=== PATIENT | male | born 1960 | race Caucasian/White ===

== ENCOUNTER → 2018-01-10 09:43 | Outpatient (CLI) | payer OTHER, SELFPAY ==
[2018-01-10 12:14] LABS: Absolute Lymphocyte Count 2.12 X10^3/ul (0.83-4.51); Absolute Neutrophil Count 2.9 X10^3/uL (2.0-7.7); Basophil# 0.05 X10^3/uL; Basophil% 0.9 % (0-1); Eosinophil# 0.23 X10^3/uL; Hematocrit 42.4 % (40-54); Hemoglobin 14.1 g/dl (13.0-16.5); Lymphocyte # 2.12 X10^3/ul (4.0); Lymphocyte % 37.1 % (19-41); Mean Corp Hgb Conc 33.3 g/gl (32-36); Mean Corpuscular Hgb 32.8 pg (27.0-32.0); Mean Corpuscular Volume 98.6 fL (80-94); Mean Platelet Vol. 10.9 fl (6.2-12.0); Monocyte# 0.41 X10^3/uL; Monocyte% 7.2 % (0-10); Neutrophil # 2.91 X10^3/uL (2.7-7.7); Neutrophil % 50.8 % (47-70); Platelet Count 197 K/mm3 (150-450); RBC Distribution Width CV 13.1 % (11.6-14.6); RBC Distribution Width SD 46.8 fl (35.1-43.9); White Blood Count 5.7 K/mm3 (4.4-11.0)
[2018-01-10 12:24] LABS: POSITIVE COUNT NO; POSITIVE DIFFERENTIAL NO; POSITIVE MORPHOLOGY NO
[2018-01-10 12:43] LABS: Anion Gap 10 (5-15); BUN 19 mg/dL (7-18); BUN/Creat Ratio 15.2 RATIO (10-20); Chloride 104 mmol/L (98-107); Cholesterol 202 mg/dL (200); Creatinine, Serum 1.25 mg/dL (0.70-1.30); EST Glomerular Filtration Rate 63 mL/min (>60); Est Glom Filt Rate - Afr Amer 77 mL/min (>60); Ferritin 128 ng/mL (26-388); Glucose 85 mg/dL (74-106); High Density Lipoprotein 72 mg/dL; Potassium 4.1 mmol/L (3.5-5.1); Sodium Level 141 mmol/L (136-145); Triglycerides 57 mg/dL; Very Low Density Lipoprotein 11 mg/dL (5-40)
== END ==
PROVIDERS: Family Provider Family Medicine; PCP Family Medicine; Visit Provider Family Medicine
DX: I10 Essential (primary) hypertension (principal); Z13.220 Encounter for screening for lipoid disorders; D64.9 Anemia, unspecified
CPT/HCPCS: 36415; 80048; 80061; 82728; 85025

== ENCOUNTER → 2019-01-23 08:44 | Outpatient (CLI) | payer OTHER, SELFPAY ==
[2019-01-23 10:05] LABS: Absolute Lymphocyte Count 2.13 X10^3/uL (0.83-4.51); Absolute Neutrophil Count 2.8 X10^3/uL (2.0-7.7); Basophil# 0.08 X10^3/uL; Basophil% 1.4 % (0-1); Eosinophil# 0.28 X10^3/uL; Eosinophils% 4.9 % (0-5); Hematocrit 41.6 % (40-54); Hemoglobin 14.3 g/dL (13.0-16.5); Lymphocyte # 2.13 X10^3/ul (4.0); Lymphocyte % 37.3 % (19-41); Mean Corp Hgb Conc 34.4 g/dL (32-36); Mean Corpuscular Hgb 33.6 pg (27.0-32.0); Mean Corpuscular Volume 97.9 fL (80-94); Mean Platelet Vol. 10.7 fl (6.2-12.0); Monocyte# 0.45 X10^3/uL; Monocyte% 7.9 % (0-10); NRBC Flagged by Analyzer 0 % (0-5); Neutrophil # 2.76 X10^3/uL (2.7-7.7); Neutrophil % 48.3 % (47-70); Platelet Count 200 K/mm3 (150-450); RBC Distribution Width CV 12.3 % (11.6-14.6); RBC Distribution Width SD 44.6 fl (35.1-43.9); Red Blood Count 4.25 M/mm3 (4.6-6.2); White Blood Count 5.7 K/mm3 (4.4-11.0)
[2019-01-23 10:28] LABS: ALB/GLOB Ratio 1.1 RATIO (0.9-2.4); AST(SGOT) 16 U/L (15-37); Alanine Aminotransfer ALT/SGPT 26 U/L (16-61); Alkaline Phosphatase 85 U/L (45-117); Anion Gap 8 (5-15); BUN 12 mg/dL (7-18); BUN/Creat Ratio 10.1 RATIO (10-20); Chloride 105 mmol/L (98-107); Cholesterol 190 mg/dL (200); Creatinine, Serum 1.19 mg/dL (0.70-1.30); EST Glomerular Filtration Rate 67 mL/min (>60); Est Glom Filt Rate - Afr Amer 81 mL/min (>60); Globulin 3.5 g/dL (2.2-4.2); Glucose 79 mg/dL (74-106); High Density Lipoprotein 70 mg/dL; Potassium 4.1 mmol/L (3.5-5.1); Protein, Total 7.5 g/dL (6.4-8.2); Sodium Level 140 mmol/L (136-145); Triglycerides 68 mg/dL; Very Low Density Lipoprotein 14 mg/dL (5-40)
== END ==
PROVIDERS: Family Provider Family Medicine; PCP Family Medicine; Referring Provider Family Medicine; Visit Provider Family Medicine
DX: Z13.220 Encounter for screening for lipoid disorders (principal); I10 Essential (primary) hypertension
CPT/HCPCS: 36415; 80053; 80061; 85025

== ENCOUNTER → 2019-08-07 08:28 | Outpatient (CLI) | payer OTHER, SELFPAY ==
[2019-08-07 10:10] LABS: Anion Gap 2 (5-15); BUN 17 mg/dL (7-18); BUN/Creat Ratio 13.8 RATIO (10-20); Calcium,Total 9.1 mg/dL (8.5-10.1); Chloride 109 mmol/L (98-107); Creatinine, Serum 1.23 mg/dL (0.70-1.30); EST Glomerular Filtration Rate 64 mL/min (>60); Est Glom Filt Rate - Afr Amer 78 mL/min (>60); Glucose 85 mg/dL (74-106); PSA,Total - Annual Screen 0.97 ng/mL (0.00-4.00); Potassium 3.9 mmol/L (3.5-5.1); Sodium Level 140 mmol/L (136-145)
[2019-08-07 10:17] LABS: Microalbumin,Random Urine 8.6 mg/L (NO RANGE EST.); Microalbumin:Creatinine Ratio 3.5 mg/g CRE (<30 mg/g CRE)
== END ==
PROVIDERS: PCP Family Medicine; Referring Provider Family Medicine; Visit Provider Family Medicine
DX: Z00.00 Encounter for general adult medical examination without abnormal findings (principal); Z12.5 Encounter for screening for malignant neoplasm of prostate; I10 Essential (primary) hypertension
CPT/HCPCS: 36415; 80048; 82043; 82570; 84153; G0103

== ENCOUNTER → 2020-01-28 08:33 | Outpatient (CLI) | payer OTHER, SELFPAY ==
[2020-01-28 10:24] LABS: ALB/GLOB Ratio 1.2 RATIO (0.9-2.4); AST(SGOT) 21 U/L (15-37); Alanine Aminotransfer ALT/SGPT 27 U/L (16-61); Alkaline Phosphatase 85 U/L (45-117); Anion Gap 4 (5-15); BUN 15 mg/dL (7-18); BUN/Creat Ratio 12.4 RATIO (10-20); Chloride 105 mmol/L (98-107); Cholesterol 204 mg/dL (200); Creatinine, Serum 1.21 mg/dL (0.70-1.30); EST Glomerular Filtration Rate 65 mL/min (>60); Est Glom Filt Rate - Afr Amer 79 mL/min (>60); Globulin 3.4 g/dL (2.2-4.2); Glucose 87 mg/dL (74-106); High Density Lipoprotein 76 mg/dL; Magnesium 2.2 mg/dL (1.6-2.6); Potassium 4.1 mmol/L (3.5-5.1); Protein, Total 7.4 g/dL (6.4-8.2); Sodium Level 138 mmol/L (136-145); Thyroid Stim Hormone (TSH) 1.77 uIU/mL (0.358-3.74); Triglycerides 88 mg/dL; Very Low Density Lipoprotein 18 mg/dL (5-40)
== END ==
PROVIDERS: PCP Family Medicine; Referring Provider Family Medicine; Visit Provider Family Medicine
DX: I10 Essential (primary) hypertension (principal); G43.909 Migraine, unspecified, not intractable, without status migrainosus
CPT/HCPCS: 36415; 80053; 80061; 83735; 84443

== ENCOUNTER → 2021-01-28 08:24 | Outpatient (CLI) | payer OTHER, SELFPAY ==
[2021-01-28 10:37] LABS: ALB/GLOB Ratio 1.1 RATIO (0.9-2.4); AST(SGOT) 14 U/L (15-37); Alanine Aminotransfer ALT/SGPT 27 U/L (16-61); Albumin, Serum 3.7 g/dL (3.2-5.0); Alkaline Phosphatase 88 U/L (45-117); Anion Gap 6 (5-15); BUN 11 mg/dL (7-18); BUN/Creat Ratio 9.5 RATIO (10-20); Calcium,Total 8.5 mg/dL (8.5-10.1); Chloride 105 mmol/L (98-107); Cholesterol 199 mg/dL (200); Creatinine, Serum 1.16 mg/dL (0.70-1.30); EST Glomerular Filtration Rate 68 mL/min (>60); Est Glom Filt Rate - Afr Amer 83 mL/min (>60); Globulin 3.4 g/dL (2.2-4.2); Glucose 85 mg/dL (74-106); High Density Lipoprotein 76 mg/dL; Potassium 4.3 mmol/L (3.5-5.1); Protein, Total 7.1 g/dL (6.4-8.2); Sodium Level 140 mmol/L (136-145); Triglycerides 67 mg/dL; Very Low Density Lipoprotein 13 mg/dL (5-40)
[2021-01-28 10:51] LABS: Microalbumin,Random Urine 6.2 mg/L (NO RANGE EST.); Microalbumin:Creatinine Ratio 4.8 mg/g CRE (<30 mg/g CRE)
== END ==
PROVIDERS: PCP Family Medicine; Referring Provider Family Medicine; Visit Provider Family Medicine
DX: I10 Essential (primary) hypertension (principal)
CPT/HCPCS: 36415; 80053; 80061; 82043; 82570

== ENCOUNTER → 2021-12-31 | Outpatient (CLI) | payer OTHER, SELFPAY ==
[2021-12-31 10:35] LABS: Anion Gap 5 (5-15); BUN 12 mg/dL (7-18); BUN/Creat Ratio 10.3 RATIO (10-20); Calcium,Total 9.2 mg/dL (8.5-10.1); Chloride 105 mmol/L (98-107); Creatinine, Serum 1.16 mg/dL (0.70-1.30); EST Glomerular Filtration Rate 68 mL/min (>60); Est Glom Filt Rate - Afr Amer 82 mL/min (>60); Glucose 89 mg/dL (74-106); Potassium 4.3 mmol/L (3.5-5.1); Sodium Level 140 mmol/L (136-145)
[2021-12-31 10:43] LABS: Microalbumin,Random Urine < 5.0 mg/L (NO RANGE EST.)
== END | disposition home or self-care (01) ==
LOC: MFPLAB 08:34
PROVIDERS: PCP Family Medicine; Visit Provider Family Medicine
DX: I10 Essential (primary) hypertension (principal)
CPT/HCPCS: 36415; 80048; 82043

== ENCOUNTER 2022-01-21 17:22 | Outpatient (CLI) | payer OTHER, SELFPAY ==
--- NOTE | 2022-01-21 | IMM_PTH ---
PATIENT: HARJIT PALMER LOC: [facility] U#:[id number] AGE/SX: 61/M ROOM: RE01/21/[address]: Dr. Quinten Priest MD : 1960 BED: DIS: 01/21/2022 SPEC #: [id number] RECD: 01/25/22 11:58 STATUS: [place] REMignon #: [id number] SHANNA: 01/21/22 00:[address]: Quinten Priest DEPT: IMMUNOHISTOCHEMISTRY RECD BY: Bethany Knutson Tissues: Skin of back, NOS Procedures: P53 (add) Vimentin (add) Pankeratin (initial) MELAN-A (add) P40 (add) S-100 (add) PHYSICIAN & INSTITUTION [place] [id number] SPECIMEN INFORMATION: Tissue Source: Mid back skin lesion Clinical Info: Dysplastic nevus Specimen Number: [id number] CPT code: 29547, 26899 x5 METHODOLOGY: Deparaffinized sections of prefer/formalin-fixed tissue or PAP/DQ stained slides are incubated with monoclonal/polyclonal antibodies/oligonucleotide probes. Localization is made via biotin free immunoperoxidase method. Appropriate controls are performed and reacted as expected. Results on target cell population are indicated in the following table: RESULTS: ANTIBODY / CLONE RESULT AE1-3 (AE1/AE3/PCK26) negative Vimentin (V9) negative Melan A (A103) negative S-100 (4C4.9) negative P40 (BC28) negative P53 (DO-7) negative These tests were developed and their performance characteristics determined by [facility]. They may not have been cleared or approved by the [place]. Food and Drug Administration. The FDA has determined that such clearance or approval is not necessary. The above immunohistochemical/dualISH markers are ordered and reviewed by the Pathologist. INTERPRETATION: Skin lesion of mid back, punch biopsy: Consistent with solar lentigo. AM:temi 01/26/2022
--- NOTE | 2022-01-21 12:30 | LES_PTH ---
PATIENT: HARJIT PALMER LOC: [facility] U#:[id number] AGE/SX: 61/M ROOM: RE01/21/[address]: Dr. Quinten Priest MD : 1960 BED: DIS: 01/21/2022 SPEC #: [id number] RECD: 01/21/22 17:22 STATUS: [place] ERIKA #: [id number] SHANNA: 01/21/22 12:[address]: Quinten Priest DEPT: SURGICAL PATHOLOGY RECD BY: Atilio Howard Tissues: Skin of leg, NOS Procedures: Surgery Specimen Level IV HEADER OPERATION: Punch biopsy PRE-OP DIAGNOSIS: Dysplastic nevus TISSUE SUBMITTED: Mid back skin lesion MICROSCOPIC DIAGNOSIS Skin lesion of mid back, punch biopsy: Consistent with solar lentigo. See comment. AM:temi 01/25/2022 COMMENT Immunohistochemistry ([id number]) supports the above diagnosis. Case has been reviewed in consultation with Dr. Altamirano who concurs with the above diagnosis. IDC:SJ MICROSCOPIC DESCRIPTION Slides are reviewed. GROSS DESCRIPTION Received in fixative is one container labeled with the patient's name and designated punch biopsy [place]. The specimen consists of a punch biopsy of blake-brown skin measuring 0.5 cm in diameter and 0.5 cm in length. The specimen is totally submitted in one cassette. / SHANE:temi 01/22/2022 TC:5 CPT: 09942
== END 2022-01-21 23:59 | disposition home or self-care (01) ==
PROVIDERS: PCP Family Medicine; Visit Provider Family Medicine
DX: D23.5 Other benign neoplasm of skin of trunk (principal)
CPT/HCPCS: 88305; 88341; 88342

== ENCOUNTER → 2023-01-07 | Outpatient (CLI) | payer OTHER, SELFPAY ==
[2023-01-07 10:01] LABS: Absolute Lymphocyte Count 4.18 X10^3/uL (0.83-4.51); Absolute Neutrophil Count 4.8 X10^3/uL (2.0-7.7); Basophil# 0.07 X10^3/uL; Basophil% 0.7 % (0-1); Eosinophil# 0.37 X10^3/uL; Eosinophils% 3.6 % (0-5); Hematocrit 37.6 % (40-54); Hemoglobin 12.8 g/dL (13.0-16.5); Lymphocyte # 4.18 X10^3/ul (0.83-4.51); Lymphocyte % 40.9 % (19-41); Mean Corpuscular Hgb 33.9 pg (27.0-32.0); Mean Corpuscular Volume 99.5 fL (80-94); Monocyte# 0.78 X10^3/uL; Monocyte% 7.6 % (0-10); NRBC Flagged by Analyzer 0 % (0-5); Neutrophil # 4.77 X10^3/uL (2.7-7.7); Neutrophil % 46.6 % (47-70); Platelet Count 221 K/mm3 (150-450); RBC Distribution Width CV 13.6 % (11.6-14.6); Red Blood Count 3.78 M/mm3 (4.6-6.2); White Blood Count 10.2 K/mm3 (4.4-11.0)
[2023-01-07 10:19] LABS: ALB/GLOB Ratio 1.2 RATIO (0.9-2.4); AST(SGOT) 13 U/L (15-37); Alanine Aminotransfer ALT/SGPT 28 U/L (16-61); Albumin, Serum 3.6 g/dL (3.2-5.0); Alkaline Phosphatase 71 U/L (45-117); Anion Gap 2 (5-15); BUN 20 mg/dL (7-18); BUN/Creat Ratio 18.3 RATIO (10-20); Calcium,Total 8.5 mg/dL (8.5-10.1); Chloride 105 mmol/L (98-107); Cholesterol 192 mg/dL (200); Creatinine, Serum 1.09 mg/dL (0.70-1.30); EST Glomerular Filtration Rate 73 mL/min (>60); Est Glom Filt Rate - Afr Amer 88 mL/min (>60); Glucose 84 mg/dL (74-106); High Density Lipoprotein 92 mg/dL; Potassium 3.8 mmol/L (3.5-5.1); Protein, Total 6.6 g/dL (6.4-8.2); Sodium Level 139 mmol/L (136-145); Triglycerides 81 mg/dL; Very Low Density Lipoprotein 16 mg/dL (5-40)
[2023-01-07 10:28] LABS: Microalbumin,Random Urine < 5.0 mg/L (NO RANGE EST.)
== END | disposition home or self-care (01) ==
PROVIDERS: PCP Family Medicine; Referring Provider Family Medicine; Visit Provider Family Medicine
DX: I12.9 Hypertensive chronic kidney disease with stage 1 through stage 4 chronic kidney disease, or unspecified chronic kidney disease (principal); N18.2 Chronic kidney disease, stage 2 (mild)
CPT/HCPCS: 36415; 80053; 80061; 82043; 82570; 85025

== ENCOUNTER → 2023-01-13 | Outpatient (CLI) | payer OTHER, SELFPAY ==
[2023-01-13 10:39] LABS: Platelet Count 196 K/mm3 (150-450); RET-HE 36.6 pg (30-35); Reticulocyte Count 1.75 % (0.5-1.5)
[2023-01-13 11:17] LABS: Vitamin B12 512 pg/mL (211-911)
[2023-01-13 11:53] LABS: Ferritin 133 ng/mL (26-388); Iron 75 ug/dL (65-175); Iron Binding Capacity,Total 282 ug/dL (250-450); PSA,Total - Annual Screen 1.41 ng/mL (0.00-4.00)
[2023-01-17 15:07] LABS: PROEL- A/G Ratio 1.4 (0.7-1.7); PROEL- Albumin 3.8 g/dL (2.9-4.4); PROEL- Alpha-1 Globulin 0.2 g/dL (0.0-0.4); PROEL- Alpha-2 Globulin 0.6 g/dL (0.4-1.0); PROEL- Beta Globulin 1.1 g/dL (0.7-1.3); PROEL- Gamma Globulin 0.9 g/dL (0.4-1.8); PROEL- Globulin, Total 2.8 g/dL (2.2-3.9); PROEL- TOTAL PROTEIN 6.6 g/dL (6.0-8.5)
== END | disposition home or self-care (01) ==
LOC: MTLAB 09:31
PROVIDERS: PCP Family Medicine; Visit Provider Family Medicine
DX: D64.9 Anemia, unspecified (principal); Z12.5 Encounter for screening for malignant neoplasm of prostate
CPT/HCPCS: 36415; 82607; 82728; 82746; 83540; 83550; 84153; 84165; 85045; G0103

== ENCOUNTER → 2024-03-07 | Outpatient (CLI) | payer OTHER, SELFPAY ==
[2024-03-07 10:08] LABS: Absolute Lymphocyte Count 1.91 X10^3/uL (0.83-4.51); Absolute Neutrophil Count 4.1 X10^3/uL (2.0-7.7); Basophil# 0.07 X10^3/uL; Eosinophil# 0.37 X10^3/uL; Eosinophils% 5.2 % (0-5); Hematocrit 38.8 % (40-54); Hemoglobin 13.3 g/dL (13.0-16.5); Lymphocyte # 1.91 X10^3/ul (0.83-4.51); Lymphocyte % 26.7 % (19-41); Mean Corp Hgb Conc 34.3 g/dL (32-36); Mean Corpuscular Hgb 33.2 pg (27.0-32.0); Mean Corpuscular Volume 96.8 fL (80-94); Monocyte% 9.8 % (0-10); NRBC Flagged by Analyzer 0 % (0-5); Neutrophil % 57.2 % (47-70); Platelet Count 188 K/mm3 (150-450); RBC Distribution Width CV 12.8 % (11.6-14.6); RBC Distribution Width SD 45.6 fl (35.1-43.9); Red Blood Count 4.01 M/mm3 (4.6-6.2); White Blood Count 7.2 K/mm3 (4.4-11.0)
[2024-03-07 10:25] LABS: ALB/GLOB Ratio 1.1 RATIO (0.9-2.4); AST(SGOT) 12 U/L (15-37); Alanine Aminotransfer ALT/SGPT 27 U/L (16-61); Albumin, Serum 3.9 g/dL (3.2-5.0); Alkaline Phosphatase 95 U/L (45-117); Anion Gap 2 (5-15); BUN 14 mg/dL (7-18); BUN/Creat Ratio 12.8 RATIO (10-20); Calcium,Total 9.1 mg/dL (8.5-10.1); Chloride 107 mmol/L (98-107); Creatinine, Serum 1.09 mg/dL (0.70-1.30); EST Glomerular Filtration Rate 73 mL/min (>60); Est Glom Filt Rate - Afr Amer 88 mL/min (>60); Globulin 3.4 g/dL (2.2-4.2); Glucose 86 mg/dL (74-106); Protein, Total 7.3 g/dL (6.4-8.2); Sodium Level 139 mmol/L (136-145)
== END | disposition home or self-care (01) ==
LOC: MTLAB 07:14
PROVIDERS: PCP Family Medicine; Referring Provider Family Medicine; Visit Provider Family Medicine
DX: I12.9 Hypertensive chronic kidney disease with stage 1 through stage 4 chronic kidney disease, or unspecified chronic kidney disease (principal); N18.2 Chronic kidney disease, stage 2 (mild)
CPT/HCPCS: 36415; 80053; 85025

== ENCOUNTER → 2024-09-20 | Outpatient (CLI) | payer OTHER, SELFPAY ==
[2024-09-20 17:34] LABS: Microalbumin,Random Urine < 12.0 mg/L (NO RANGE EST.); Microalbumin:Creatinine Ratio UNABLE TO CALCULATE mg/g CRE
[2024-09-20 18:11] LABS: Anion Gap 11 (5-15); BUN 16 mg/dL (4-19); BUN/Creat Ratio 13.4 RATIO (10-20); Calcium,Total 9.5 mg/dL (7.6-11.0); Carbon Dioxide 23.2 mmol/L (21.0-32.0); Chloride 104 mmol/L (98-108); Creatinine, Serum 1.16 mg/dL (0.70-1.20); EST Glomerular Filtration Rate 71 (>60); Glucose 90 mg/dL (70-99); Potassium 4.4 mmol/L (3.3-5.1); Sodium Level 138 mmol/L (133-145)
== END | disposition home or self-care (01) ==
LOC: MFPLAB 12:28
PROVIDERS: PCP Family Medicine; Referring Provider Family Medicine; Visit Provider Family Medicine
DX: I10 Essential (primary) hypertension (principal)
CPT/HCPCS: 36415; 80048; 82043; 82570

== ENCOUNTER → 2025-03-08 | Outpatient (CLI) | payer OTHER, SELFPAY ==
--- OUTSIDE RECORDS SUMMARY | 2025-03-08 07:39 | XMS RPT_ITS | CCD ---
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 Quinten Priest Primary Care Provider Dr. Quinten Priest Referring Provider JOHN Ny Attending Provider Dr. Quinten Priest MD Primary Care Provider Cem GARCIA, Dr. Shipley Attending Provider Dr. Quinten Priest MD Referring Provider [phone] Quinten Priest Attending Unavailable Quinten Priest Referring Unavailable Quinten Priest Primary Care Unavailable Quinten Priest Attending Unavailable Quinten Priest Referring Unavailable Quinten Priest Primary Care Unavailable Medications Current Medications Medication Drug Class(es) Dates Sig (Normalized) Sig (Original) amLODIPine 5 mg oral tablet (2 sources) Dihydropyridine Calcium Channel Edson Start: 12-30-2022 Amlodipine 5 mg tablet Active mg PO December 30, 2022 12:00am Start: 12-30-2022 Amlodipine Act fozia MG PO December 30, 2022 12:00am amoxicillin 500 mg oral tablet (1 source) Penicillin-class Antibacterial Start: 09-05-2023 take 1 tablet by mouth three times daily Amoxicillin 500 mg tablet Active 500 mg PO THREE TIMES A DAY September 05, 2023 12:00am benzonatate 200 mg oral capsule (1 source) Non-narcotic Antitussive Start: 08-29-2023 take 1 capsule by mouth three times daily as needed for cough Benzonatate 200 mg capsule Active 200 mg PO THREE TIMES A DAY as needed for cough August 29, 2023 12:00am cholecalciferol 0.025 mg oral capsule (2 sources) Vitamin D Start: 12-30-2022 take 1 capsule by mouth once daily Cholecalciferol (Vitamin D3) 25 mcg (1,000 unit) capsule Active 25 ug PO DAILY December 30, 2022 12:00am magnesium oxide 400 mg oral tablet (2 sources) Start: 12-30-2022 take 1 tablet by mouth once daily Magnesium Oxide 400 mg magnesium tablet Active 400 mg PO DAILY December 30, 2022 12:00am Vitamin B Complex (B Complex-Vitamin B12) tablet (2 sources) Start: 12-30-2022 Vitamin B Complex (B Complex-Vitamin B12) tablet Active 1 {tbl} PO DAILY December 30, 2022 12:00am Start: 12-30-2022 take 1 tablet by angella th once daily Vitamin B Complex (B Complex-Vitamin B12) tablet Active 1 TABLET PO DAILY December 30, 2022 12:00am Completed/Discontinued Medications Medication Drug Class(es) Dates Sig (Normalized) Sig (Original) methylPREDNISolone 4 mg oral tablet (1 source) Corticosteroid Start: 4 End: 4 take 1 tablet by mouth once Methylprednisolone (Medrol (Del)) 4 mg tablets,dose pack Discontinued 0 PO per package directions August 29, 2023 12:00am September 05, 2023 9:11am PO PER PKG DIR predniSONE 10 mg oral tablet (2 sources) Start: 3 End: 3 Prednisone 10 mg tablet Discontinued 10 mg PO daily 30 04December 30, 2022 12:00am January 10, 2023 12:00am January 11, 2023 12:03am Take 4 tabs once daily days 1-3 3 tabs once days 4-6 2 tabs once days 7-9 and 1 tab once days 10-12. Problems Problem Classification Problem Date Documented Da te Episodic/Chronic Allergic reactions (3 sources) Irritant contact dermatitis due to plant; Translations: [Irritant contact dermatitis due to plants, except food] 12-30-2022 Episodic Essential hypertension (3 sources) Hypertensive disorder; Translations: [Essential (primary) hypertension] Onset: 09-26-2024 12-30-2022 Chronic Hypertension with complications and secondary hypertension (1 source) Hypertensive chronic kidney disease with stage 1 through stage 4 chronic kidney disease, or unspecified chronic kidney disease; Translations: [Hypertensive chronic kidney disease with stage 1 through stage 4 chronic kidney disease, or unspecified chronic kidney disease] Onset: 12-02-2024 Chronic Spondylosis; intervertebral disc disorders; other back problems (2 sources) Backache; Translations: [Dorsalgia, unspecified] 12-30-2022 Episodic Results Test Name Value Interpretation Reference Range Facility Anion gap in Serum or Plasma Ordered By: Quinten Priest on 09-20-2024 Anion gap [Moles/Vol] 11 mmol/L 09-13 [facility] BUN/creatinine ratioOrdered By: Quinten Priest on 09-20-2024 Urea nitrogen/Creatinine [Mass ratio] 13.4 mg/mg 02-18 [facility] Basic Metabolic Profile (BMP )on 09-20-2024 BUN/CRE 13.4 RATIO Normal 02-18 [facility] Comment on above: Performed By: #### L 502.0250, L500.2500 #### [facility] [address] [place], [address] Calcium [Mass/Vol] 9.5 mg/dL Normal 7.6-11.0 [facility] Comment on above: Performed By: #### L 502.0250, L500.2500 #### [facility] [address] [place], [address] Chloride [Moles/Vol] 104 mmol/L Normal 98-108 [facility] Comment on above: Performed By: #### L 502.0250, L500.2500 #### [facility] [address] [place], [address] CO2 [Moles/Vol] 23.2 mmol/L Normal 21.0-32.0 [facility] Comment on above: Performed By: #### L 502.0250, L500.2500 #### [facility] [address] [place], [address] Creatinine [Mass/Vol] 1.16 mg/dL Normal 0.70-1.20 [facility] Comment on above: Performed By: #### L 502.0250, L500.2500 #### [facility] [address] [place], [address] GAP 11 Normal 5-15 [facility] Comment on above: Performed By: #### L 502.0250, L500.2500 #### [facility] [address] [place], [address] GFR/1.73 sq M.predicted among non-blacks MDRD (S/P/Bld) [Vol rate/Area] 71 mL/min/{1.73_m2} Normal >60 [facility] Comment on above: Result Comment: mL/m in/1.73m2 CKD-EPI Creatinine Equation (2020) Performed By: #### L 502.0250, L500.2500 #### [facility] [address] [place], [address] Glucose [Mass/Vol] 90 mg/dL Normal 70-99 [facility] Comment on above: Performed By: #### L 502.0250, L500.2500 #### [facility] [address] [place], [address] Potassium [Moles/Vol] 4.4 mmol/L Normal 3.3-5.1 [facility] Comment on above: Performed By: #### L 502.0250, L500.2500 #### [facility] [address] [place], [address] Sodium [Moles/Vol] 138 mmol/L Normal 133-145 [facility] Comment on above: Performed By: #### L 502.0250, L500.2500 #### [facility] [address] [place], [address] Urea nitrogen [Mass/Vol] 16 mg/dL Normal 4-19 [facility] Comment on above: Performed By: #### L 502.0250, L500.2500 #### [facility] [address] [place], [address] Carbon dioxide, total [Moles /volume] in Central venous bloodOrdered By: Quinten Priest on 09-20-2024 CO2 [Moles/Vol] 23.2 mmol/L 21.0-32.0 [facility] Chloride assayOrdered By: Walt Priest on 09-20-2024 Chloride [Moles/Vol] 104 mmol/L 98-108 [facility] Glomerular filtration rate ( GFR) estimation/1.73 sq m using serum, plasma, or whole bOrdered By: Quinten Priest on 09-20-2024 GFR/1.73 sq M.predicted among non-blacks MDRD (S/P/Bld) [Vol rate/Area] 71 mL/min/{1.73_m2} >60 [facility] Comment on above: mL/min/1.73m2 CKD-EP I Creatinine Equation (2020) Microalb:Creat Ratio,Random URon 09-20-2024 Creatinine [Mass/Vol] 81.40 mg/dL Normal 39.00-259.00 [facility] Comment on above: Performed By: #### L 502.0250, L500.2500 #### [facility] [address] [place], [address] MALB:CREAT UNABLE TO CALCULATE Normal [facility] Comment on above: Performed By: #### L 502.0250, L500.2500 #### [facility] [address] [place], [address] MICROALBUMIN,UR < 12.0 Normal NO RANGE EST. [facility] Comment on above: Performed By: #### L 502.0250, L500.2500 #### [facility] [address] [place], [address] Microalbumin/creat ratio urO rdered By: Quinten Priest on 09-20-2024 Urine microalbumin/creatinine ratio measurement UNABLE TO CALCULATE mg/g CRE [facility] Potassium measurement (mass/ volume)Ordered By: Quinten Priest on 09-20-2024 Potassium (Unsp spec) [Mass/Vol] 4.4 mmol/L 3.3-5.1 [facility] Random urine creatinine bernardo urement (mass/volume)Ordered By: Quinten Priest on 09-20-2024 Creatinine Unsp time (U) [Mass/Vol] 81.40 mg/dL 39.00-259.00 [facility] Serum creatinine measurement (mass/volume)Ordered By: Quinten Priest on 09-20-2024 Creatinine [Mass/Vol] 1.16 mg/dL 0.70-1.20 [facility] Serum glucose measurement (m ass/volume)Ordered By: Quinten Priest on 09-20-2024 Glucose [Mass/Vol] 90 mg/dL 70-99 [facility] Serum or plasma calcium bernardo urement (mass/volume)Ordered By: Quinten Priest on 09-20-2024 Calcium [Mass/Vol] 9.5 mg/dL 7.6-11.0 [facility] Serum or plasma urea nitroge n measurement (mass/volume)Ordered By: Quinten Priest on 09-20-2024 Urea nitrogen [Mass/Vol] 16 mg/dL 4-19 [facility] Sodium levelOrdered By: Quinten Priest on 09-20-2024 Sodium [Moles/Vol] 138 mmol/L 133-145 [facility] Urine albumin measurement wi detection limit of 20 mg/L or less (mass/volume)Ordered By: Quinten Priest on 09-20-2024 Albumin DL <= 20 mg/L (U) [Mass/Vol] < 12.0 mg/L NO RANGE EST. [facility] CBC W/Diff, Automatedon 11-0 Absolute Lymph 1.91 X10 3/uL Normal 0.83-4.51 [facility] Comment on above: Order Comment: Order Date: 07/14/23 Order Info: 0184-1 - CBCD Performed By: #### L 100.0100, L500.4050 #### [facility] [address] [place], [address] Absolute Neut 4.1 X10 3/uL Normal 2.0-7.7 [facility] Comment on above: Order Comment: Order Date: 07/14/23 Order Info: 0184-1 - CBCD Performed By: #### L 100.0100, L500.4050 #### [facility] [address] [place], [address] Basophils/100 WBC (Bld) 1.0 % Normal 0-1 [facility] Comment on above: Order Comment: Order Date: 07/14/23 Order Info: 0184-1 - CBCD Performed By: #### L 100.0100, L500.4050 #### [facility] [address] [place], [address] Eosinophils/100 WBC (Bld) 5.2 % High 0-5 [facility] Comment on above: Order Comment: Order Date: 07/14/23 Order Info: 0184-1 - CBCD Performed By: #### L 100.0100, L500.4050 #### [facility] [address] [place], [address] Erythrocyte distribution width (RBC) [Ratio] 12.8 % Normal 11.6-14.6 [facility] Comment on above: Order Comment: Order Date: 07/14/23 Order Info: 018- - CBCD Performed By: #### L 100.0100, L500.4050 #### [facility] [address] [place], [address] Hematocrit (Bld) [Volume fraction] 38.8 % Low 40-54 [facility] Comment on above: Order Comment: Order Date: 07/14/23 Order Info: 0184-1 - CBCD Performed By: #### L 100.0100, L500.4050 #### [facility] [address] [place], [address] Hemoglobin (Bld) [Mass/Vol] 13.3 g/dL Normal 13.0-16.5 [facility] Comment on above: Order Comment: Order Date: 07/14/23 Order Info: 0184-1 - CBCD Performed By: #### L 100.0100, L500.4050 #### [facility] [address] [place], [address] IG% 0.100 Normal 0.0-0.9 [facility] Comment on above: Order Comment: Order Date: 07/14/23 Order Info: 0184- - CBCD Result Comment: IG% - Immature Granulocytes (promyelocytes, myelocytes and metamyelocytes) > 1% indicates that a LEFT SHIFT is Present. Performed By: #### L 100.0100, L500.4050 #### [facility] [address] [place], [address] Lymphocytes/100 WBC (Bld) 26.7 % Normal 19-41 [facility] Comment on above: Order Comment: Order Date: 07/14/23 Order Info: 018- - CBCD Performed By: #### L 100.0100, L500.4050 #### [facility] [address] [place], [address] MCH (RBC) [Entitic mass] 33.2 pg High 27.0-32.0 [facility] Comment on above: Order Comment: Order Date: 07/14/23 Order Info: 018- - CBCD Performed By: #### L 100.0100, L500.4050 #### [facility] [address] [place], [address] MCHC (RBC) [Mass/Vol] 34.3 g/dL Normal 32-36 [facility] Comment on above: Order Comment: Order Date: 07/14/23 Order Info: 018- - CBCD Performed By: #### L 100.0100, L500.4050 #### [facility] [address] [place], [address] MCV (RBC) [Entitic vol] 96.8 fL High 80-94 [facility] Comment on above: Order Comment: Order Date: 07/14/23 Order Info: 018- - CBCD Performed By: #### L 100.0100, L500.4050 #### [facility] [address] [place], [address] Monocytes/100 WBC (Bld) 9.8 % Normal 0-10 [facility] Comment on above: Order Comment: Order Date: 07/14/23 Order Info: 0184-1 - CBCD Performed By: #### L 100.0100, L500.4050 #### [facility] [address] [place], [address] Neutrophils/100 WBC (Bld) 57.2 % Normal 47-70 [facility] Comment on above: Order Comment: Order Date: 07/14/23 Order Info: 0184-1 - CBCD Performed By: #### L 100.0100, L500.4050 #### [facility] [address] [place], [address] Nucleated RBC (Bld) [#/Vol] 0 10*3/uL Normal 0-5 [facility] Comment on above: Order Comment: Order Date: 07/14/23 Order Info: 0184-1 - CBCD Performed By: #### L 100.0100, L500.4050 #### [facility] [address] [place], [address] Platelet mean volume (Bld) [Entitic vol] 11.0 fL Normal 6.2-12.0 [facility] Comment on above: Order Comment: Order Date: 07/14/23 Order Info: 0184-1 - CBCD Performed By: #### L 100.0100, L500.4050 #### [facility] [address] [place], [address] Platelets (Bld) [#/Vol] 188 10*3/uL Normal 150-450 [facility] Comment on above: Order Comment: Order Date: 07/14/23 Order Info: 0184-1 - CBCD Performed By: #### L 100.0100, L500.4050 #### [facility] [address] [place], [address] RBC (Bld) [#/Vol] 4.01 10*6/uL Low 4.6-6.2 [facility] Comment on above: Order Comment: Order Date: 07/14/23 Order Info: 0184-1 - CBCD Performed By: #### L 100.0100, L500.4050 #### [facility] [address] [place], [address] RDW SD 45.6 fl High 35.1-43.9 [facility] Comment on above: Order Comment: Order Date: 07/14/23 Order Info: 0184- - CBCD Performed By: #### L 100.0100, L500.4050 #### [facility] [address] [place], [address] WBC (Bld) [#/Vol] 7.2 10*3/uL Normal 4.4-11.0 [facility] Comment on above: Order Comment: Order Date: 07/14/23 Order Info: 0184- - CBCD Performed By: #### L 100.0100, L500.4050 #### [facility] [address] [place], [address] Comprehensive Metabolic Prof [facility] 03-07-2024 Albumin [Mass/Vol] 3.9 g/dL Normal 3.2-5.0 [facility] Comment on above: Order Comment: Order Date: 07/14/23 Order Info: 0786-1 - CMP Performed By: #### L 100.0100, L500.4050 #### [facility] [address] [place], [address] Albumin/Globulin [Mass ratio] 1.1 {ratio} Normal 0.9-2.4 [facility] Comment on above: Order Comment: Order Date: 07/14/23 Order Info: 0786-1 - CMP Performed By: #### L 100.0100, L500.4050 #### [facility] [address] [place], [address] ALK P 95 U/L Normal 45-117 [facility] Comment on above: Order Comment: Order Date: 07/14/23 Order Info: 0786-1 - CMP Performed By: #### L 100.0100, L500.4050 #### [facility] [address] [place], [address] ALT [Catalytic activity/Vol] 27 U/L Normal 16-61 [facility] Comment on above: Order Comment: Order Date: 07/14/23 Order Info: 0786-1 - CMP Performed By: #### L 100.0100, L500.4050 #### [facility] [address] [place], [address] AST [Catalytic activity/Vol] 12 U/L Low 15-37 [facility] Comment on above: Order Comment: Order Date: 07/14/23 Order Info: 0786-1 - CMP Performed By: #### L 100.0100, L500.4050 #### [facility] [address] [place], [address] Bilirubin [Mass/Vol] 0.70 mg/dL Normal 0.20-1.00 [facility] Comment on above: Order Comment: Order Date: 07/14/23 Order Info: 0786-1 - CMP Result Comment: For patients on eltrombopag therapy, use of Dimension [place] TBIL is not recommended. Performed By: #### L 100.0100, L500.4050 #### [facility] [address] [place], [address] BUN/CRE 12.8 RATIO Normal 10-20 [facility] Comment on above: Order Comment: Order Date: 07/14/23 Order Info: 0786-1 - CMP Performed By: #### L 100.0100, L500.4050 #### [facility] [address] [place], [address] CA,Total 9.1 mg/dL Normal 8.5-10.1 [facility] Comment on above: Order Comment: Order Date: 07/14/23 Order Info: 0786-1 - CMP Performed By: #### L 100.0100, L500.4050 #### [facility] [address] [place], [address] Chloride [Moles/Vol] 107 mmol/L Normal 98-107 [facility] Comment on above: Order Comment: Order Date: 07/14/23 Order Info: 0786-1 - CMP Performed By: #### L 100.0100, L500.4050 #### [facility] [address] [place], [address] CO2 [Moles/Vol] 29.0 mmol/L Normal 21.0-32.0 [facility] Comment on above: Order Comment: Order Date: 07/14/23 Order Info: 0786-1 - CMP Performed By: #### L 100.0100, L500.4050 #### [facility] [address] [place], [address] Creatinine [Mass/Vol] 1.09 mg/dL Normal 0.70-1.30 [facility] Comment on above: Order Comment: Order Date: 07/14/23 Order Info: 0786-1 - CMP Result Comment: The validity of the calculated GFR GFRAA in patients over 70 years has not been determined. Clinical correlation is essential. Performed By: #### L 100.0100, L500.4050 #### [facility] [address] [place], [address] EST GFR - AA 88 mL/min Normal >60 [facility] Comment on above: Order Comment: Order Date: 07/14/23 Order Info: 0786-1 - CMP Result Comment: Afri can [place] GFR Calc Performed By: #### L 100.0100, L500.4050 #### [facility] [address] [place], [address] GAP 2 Low 5-15 [facility] Comment on above: Order Comment: Order Date: 07/14/23 Order Info: 0786-1 - CMP Performed By: #### L 100.0100, L500.4050 #### [facility] [address] [place], [address] GFR/1.73 sq M.predicted among non-blacks MDRD (S/P/Bld) [Vol rate/Area] 73 mL/min/{1.73_m2} Normal >60 [facility] Comment on above: Order Comment: Order Date: 07/14/23 Order Info: 0786-1 - CMP Result Comment: Non- GFR Calc Performed By: #### L 100.0100, L500.4050 #### [facility] [address] [place], [address] Globulin (S) [Mass/Vol] 3.4 g/dL Normal 2.2-4.2 [facility] Comment on above: Order Comment: Order Date: 07/14/23 Order Info: 0786-1 - CMP Performed By: #### L 100.0100, L500.4050 #### [facility] [address] [place], [address] Glucose [Mass/Vol] 86 mg/dL Normal 74-106 [facility] Comment on above: Order Comment: Order Date: 07/14/23 Order Info: 0786-1 - CMP Performed By: #### L 100.0100, L500.4050 #### [facility] [address] [place], [address] Potassium [Moles/Vol] 4.0 mmol/L Normal 3.5-5.1 [facility] Comment on above: Order Comment: Order Date: 07/14/23 Order Info: 0786-1 - CMP Performed By: #### L 100.0100, L500.4050 #### [facility] [address] [place], [address] Sodium [Moles/Vol] 139 mmol/L Normal 136-145 [facility] Comment on above: Order Comment: Order Date: 07/14/23 Order Info: 0786-1 - CMP Performed By: #### L 100.0100, L500.4050 #### [facility] [address] [place], [address] T PROT 7.3 g/dL Normal 6.4-8.2 [facility] Comment on above: Order Comment: Order Date: 07/14/23 Order Info: 0786-1 - CMP Performed By: #### L 100.0100, L500.4050 #### [facility] [address] [place], [address] Urea nitrogen [Mass/Vol] 14 mg/dL Normal 7-18 [facility] Comment on above: Order Comment: Order Date: 07/14/23 Order Info: 0786-1 - CMP Performed By: #### L 100.0100, L500.4050 #### [facility] [address] [place], [address] Hemoglobin in reticulocytes (mass per reticulocyte)Ordered By: Quinten Priest on 01-13-2023 Hemoglobin (Reticulocytes) [Entitic mass] 36.6 pg 30-35 [facility] Iron measurement (mass/mass) Ordered By: Quinten Priest on 01-13-2023 Iron (Unsp spec) [Mass/Mass] 75 ug/dL 65-175 [facility] - Chemistry and C hemistry - challengeOrdered By: Quinten Priest on 01-13-2023 Albumin [Mass/Vol] 3.8 g/dL 2.9-4.4 [facility] Cobalamin (Vitamin B12) [Mass/Vol] 512 pg/mL 211-911 [facility] No Panel InformationOrdered By: Quinten Priest on 01-13-2023 Addendum Document Comment . [facility] Comment on above: The SPE pattern appe ars unremarkable. Evidence ofmonoclonal protein is not apparent.Performed at: [address], [place] [id number] Director: Salazar Garcia PhD, Phone: [phone] Oooec-4-Gcqzhvpqc 0.2 g/dL 0.0-0.4 [facility] Dekul-0-Gknntyynh 0.6 g/dL 0.4-1.0 [facility] Gamma Globulins 0.9 g/dL 0.4-1.8 [facility] Immature Reticulocyte Fraction 8.00 % 3.00-15.90 [facility] Prostate Specific Antigen Screen 1.41 ng/mL 0.00-4.00 [facility] Comment on above: This test was perfor med using the TPSA assay method for [employer] chemistry system. Values obtained with differentassay methods cannot be used interchangably.When changing PSA assays in the course of monitoring apatient, additional sequential testing should be carriedout to confirm baseline values. Reticulocyte Count 1.75 % 0.5-1.5 [facility] Total Iron Binding Capacity 282 ug/dL 250-450 [facility] Protein Fractions Elph [Inte rp]Ordered By: Quinten Priest on 01-13-2023 Protein Fractions [Interp] Comment . [facility] Comment on above: Protein electrophore sis scan will follow via computer,mail, or manager apple delivery. Serum albumin to globulin ra yissel by protein electrophoresisOrdered By: Quinten Priest on 01-13-2023 Albumin/Globulin Elph [Mass ratio] 1.4 0.7-1.7 [facility] Serum globulin measurement ( mass/volume)Ordered By: Quinten Priest on 01-13-2023 Globulin (S) [Mass/Vol] 2.8 g/dL 2.2-3.9 [facility] Serum or plasma beta globuli n measurement by electrophoresis (mass/volume)Ordered By: Quinten Priest on 01-13-2023 Beta globulin Elph [Mass/Vol] 1.1 g/dL 0.7-1.3 [facility] Serum or plasma ferritin vickie surement (mass/volume)Ordered By: Quinten Priest on 01-13-2023 Ferritin [Mass/Vol] 133 ng/mL 26-388 [facility] Serum or plasma folate measu rement (mass/volume)Ordered By: Quinten Priest on 01-13-2023 Folate [Mass/Vol] 28.30 ng/mL 3.1-55.4 [facility] Thin prep Papanicolaou smear with manual screeningOrdered By: Quinten Priest on 01-13-2023 Thin prep Papanicolaou smear with manual screening See comment [facility] Comment on above: NOT OBSERVED Total protein bloodOrdered B y: Quinten Priest on 01-13-2023 Protein [Mass/Vol] 6.6 g/dL 6.0-8.5 [facility] Absolute lymphocyte countOrd ered By: Quinten Priest on 01-07-2023 Lymphocytes Auto (Unsp spec) [#/Vol] 4.18 10*3/uL 0.83-4.51 [facility] Basophil percentageOrdered B y: Quinten Priest on 01-07-2023 Basophils/100 WBC (Bld) 0.7 % 0-1 [facility] Bilirubin [Mass/Vol] 0.70 mg/dL 0.20-1.00 [facility] Comment on above: For patients on eltr ombopag therapy, use of Dimension [place] TBIL is not recommended. Chloride [Moles/Vol] 105 mmol/L 98-107 [facility] Cholesterol [Mass/Vol] 192 mg/dL <200 [facility] Comment on above: <200 mg/dL Desirable 200-240 mg/dL Borderline >240 mg/dL High Risk Eosinophils/100 WBC (Bld) 3.6 % 0-5 [facility] Glucose [Mass/Vol] 84 mg/dL 74-106 [facility] Neutrophils (Bld) [#/Vol] 4.8 10*3/uL 2.0-7.7 [facility] Neutrophils/100 WBC (Bld) 46.6 % 47-70 [facility] Potassium [Moles/Vol] 3.8 mmol/L 3.5-5.1 [facility] Protein [Mass/Vol] 6.6 g/dL 6.4-8.2 [facility] Sodium [Moles/Vol] 139 mmol/L 136-145 [facility] Triglyceride [Mass/Vol] 81 mg/dL <199 [facility] Comment on above: The drugs N-Acetylcy steine and Metamizole may falsely depress this assay.Serum Triglycerides Reference Interval Normal <150 mg/dL Borderline high 150 - 199 mg/dL High 200 - 499 mg/dL Very High > or = 500 mg/dL WBC (Bld) [#/Vol] 10.2 10*3/uL 4.4-11.0 [facility] Blood erythrocytes count (nu mber/volume)Ordered By: Quinten Priest on 01-07-2023 RBC (Bld) [#/Vol] 3.78 10*6/uL 4.6-6.2 [facility] Blood hemoglobin measurement (mass/volume)Ordered By: Quinten Priest on 01-07-2023 Hemoglobin (Bld) [Mass/Vol] 12.8 g/dL 13.0-16.5 [facility] Blood lymphocytes/100 leukoc ytesOrdered By: Quinten Priest on 01-07-2023 Lymphocytes/100 WBC (Bld) 40.9 % 19-41 [facility] Blood monocytes/100 leukocyt esOrdered By: Quinten Priest on 01-07-2023 Monocytes/100 WBC (Bld) 7.6 % 0-10 [facility] Blood platelet mean volumeOr dered By: Quinten Priest on 01-07-2023 Platelet mean volume (Bld) [Entitic vol] 10.0 fL 6.2-12.0 [facility] Determination of erythrocyte mean corpuscular volume (MCV)Ordered By: Quinten Priest on 01-07-2023 MCV (RBC) [Entitic vol] 99.5 fL 80-94 [facility] Hematocrit Auto (Bld) [Volum e fraction]Ordered By: Quinten Priest on 01-07-2023 Hematocrit (Bld) [Volume fraction] 37.6 % 40-54 [facility] Laboratory - Chemistry and C hemistry - challengeOrdered By: Quinten Priest on 01-07-2023 ALP [Catalytic activity/Vol] 71 U/L 45-117 [facility] ALT [Catalytic activity/Vol] 28 U/L 16-61 [facility] CO2 [Moles/Vol] 32.0 mmol/L 21.0-32.0 [facility] Globulin (S) [Mass/Vol] 3.0 g/dL 2.2-4.2 [facility] Urea nitrogen/Creatinine [Mass ratio] 18.3 mg/mg 10-20 [facility] Laboratory - Hematology and Cell countsOrdered By: Quinten Priest on 01-07-2023 Erythrocyte distribution width (RBC) [Entitic vol] 50.0 fL 35.1-43.9 [facility] Erythrocyte distribution width (RBC) [Ratio] 13.6 % 11.6-14.6 [facility] Immature granulocytes/100 WBC (Bld) 0.600 % 0.0-0.9 [facility] Comment on above: IG% - Immature Granu locytes (promyelocytes, myelocytes and metamyelocytes) > 1% indicates that a LEFT SHIFT is Present. MCH (RBC) [Entitic mass] 33.9 pg 27.0-32.0 [facility] Nucleated RBC/100 WBC (Bld) [Ratio] 0 % 0-5 [facility] MCHC Auto (RBC) [Mass/Vol]Or dered By: Quinten Priest on 01-07-2023 MCHC (RBC) [Mass/Vol] 34.0 g/dL 32-36 [facility] No Panel InformationOrdered By: Quinten Priest on 01-07-2023 Estimated GFR (MDRD) Amer 88 mL/min >60 [facility] Comment on above: GFR Calc Estimated GFR (MDRD) Non-Af Amer 73 mL/min >60 [facility] Comment on above: Non- GFR Calc Urine Microalbumin/Creatinine Ratio TNP [facility] Comment on above: Test not performed Platelets bldOrdered By: Margarette Priest on 01-07-2023 Platelets (Bld) [#/Vol] 221 10*3/uL 150-450 [facility] Serum or plasma albumin bernardo urement (mass/volume)Ordered By: Quinten Priest on 01-07-2023 Albumin [Mass/Vol] 3.6 g/dL 3.2-5.0 [facility] Serum or plasma albumin/glob ulin mass ratioOrdered By: Quinten Priest on 01-07-2023 Albumin/Globulin [Mass ratio] 1.2 {ratio} 0.9-2.4 [facility] Serum or plasma calcium bernardo urement (mass/volume)Ordered By: Quinten Priest on 01-07-2023 Calcium [Mass/Vol] 8.5 mg/dL 8.5-10.1 [facility] Serum or plasma cholesterol in HDL measurement (mass/volume)Ordered By: Quinten Priest on 01-07-2023 Cholesterol in HDL [Mass/Vol] 92 mg/dL >40 [facility] Comment on above: The drugs N-Acetylcy steine and Metamizole may falsely depress this assay. Reference Range HDL <40 mg/dL Low HDL Cholesterol HDL >or= 60 mg/dL High HDL Cholesterol Serum or plasma cholesterol in VLDL measurement (mass/volume)Ordered By: Quinten Priest on 01-07-2023 Cholesterol in VLDL [Mass/Vol] 16 mg/dL 5-40 [facility] Serum or plasma creatinine m easurement (mass/volume)Ordered By: Quinten Priest on 01-07-2023 Creatinine [Mass/Vol] 1.09 mg/dL 0.70-1.30 [facility] Comment on above: The validity of the calculated GFR & GFRAA in patients over 70 years has not been determined. Clinical correlation is essential. Serum or plasma low density lipoprotein (LDL) cholesterol measurement (mass/volume)Ordered By: Quinten Priest on 01-07-2023 Cholesterol in LDL [Mass/Vol] 84 mg/dL 0-130 [facility] Serum or plasma urea nitroge n measurement (mass/volume)Ordered By: Quinten Priest on 01-07-2023 Urea nitrogen [Mass/Vol] 20 mg/dL 7-18 [facility] Thin prep Papanicolaou smear with manual screeningOrdered By: Quinten Priest on 01-07-2023 Thin prep Papanicolaou smear with manual screening 13 U/L 15-37 [facility] Thin prep Papanicolaou smear with manual screening 2 5-15 [facility] Thin prep Papanicolaou smear with manual screening < 5.0 mg/L NO RANGE EST. [facility] Urine creatinine measurement (mass/volume)Ordered By: Quinten Priest on 01-07-2023 Creatinine (U) [Mass/Vol] 174.00 mg/dL NO RANGE EST. [facility] Basophil percentageon 2021 Chloride [Moles/Vol] 105 mmol/L 98-107 [facility] Work Phone: Glucose [Mass/Vol] 89 mg/dL 74-106 [facility] Work Phone: [phone] Potassium [Moles/Vol] 4.3 mmol/L 3.5-5.1 [facility] Work Phone: [phone] Sodium [Moles/Vol] 140 mmol/L 136-145 [facility] Work Phone: Laboratory - Chemistry and C hemistry - challengeon 12-31-2021 CO2 [Moles/Vol] 30.0 mmol/L 21.0-32.0 [facility] Work Phone: Urea nitrogen/Creatinine [Mass ratio] 10.3 mg/mg 10-20 [facility] Work Phone: No Panel Informationon 12-31 Estimated GFR (MDRD) Amer 82 mL/min >60 [facility] Work Phone: Comment on above: GFR Calc Estimated GFR (MDRD) Non-Af Amer 68 mL/min >60 [facility] Work Phone: Comment on above: Non- GFR Calc Serum or plasma calcium bernardo urement (mass/volume)on 12-31-2021 Calcium [Mass/Vol] 9.2 mg/dL 8.5-10.1 [facility] Work Phone: Serum or plasma creatinine m easurement (mass/volume)on 12-31-2021 Creatinine [Mass/Vol] 1.16 mg/dL 0.70-1.30 [facility] Work Phone: Comment on above: The validity of the calculated GFR & GFRAA in patients over 70 years has not been determined. Clinical correlation is essential. Serum or plasma urea nitroge n measurement (mass/volume)on 12-31-2021 Urea nitrogen [Mass/Vol] 12 mg/dL 7-18 [facility] Work Phone: Thin prep Papanicolaou smear with manual screeningon 12-31-2021 Thin prep Papanicolaou smear with manual screening 5 5-15 [facility] Work Phone: Thin prep Papanicolaou smear with manual screening < 5.0 mg/L NO RANGE EST. [facility] Work Phone: Vital Signs Date Time Vital Sign Value Performing Clinician Faci lity 12-30-2022 09:46-0400 Body height 180.[address] Quinten Priest Work Phone: [facility] 12-30-2022 09:46-0400 Body mass index (BMI) [Ratio] 25.4 kg/m2 Dr. Quinten Priest Work Phone: [facility] 12-30-2022 09:46-0400 Body temperature 98.5 [degF] Dr. Quinten Priest Work Phone: [facility] 12-30-2022 09:46-0400 Body weight 82.[address] Quinten Priest Work Phone: [facility] 12-30-2022 09:46-0400 Diastolic blood pressure 94 mm[Hg] Dr. Quinten Priest Work Phone: [facility] 12-30-2022 09:46-0400 Heart rate 78 /min Dr. Quinten Priest Work Phone: [facility] 12-30-2022 09:46-0400 Respiratory rate 16 /min Dr. Quinten Priest Work Phone: [facility] 12-30-2022 09:46-0400 SaO2% (BldA) [Mass fraction] 98 % Dr. Quinten Priest Work Phone: [facility] 12-30-2022 09:46-0400 Systolic blood pressure 156 mm[Hg] Dr. Quinten Priest Work Phone: [facility] Encounters Encounter Date Encounter Type Care Provider Facility Start: 09-20-2024 End: 09-20-[address] Quinten Priest MD Work Phone: [facility] Work Phone: Start: 09-20-2024 End: 09-20-[address] Quinten Priest MD -Laboratory [facility] Start: 09-20-2024 End: 09-20-2024 ambulatory Quinten Priest Facility:[facility] Start: 03-07-2024 End: 03-07-2024 ambulatory Quinten Priest Facility:[facility] Start: 01-13-2023 End: 01-13-[address] Quinten Priest Work Phone: [facility] Work Phone: Start: 01-13-2023 End: 01-13-[address] Quinten Priest Work Phone: [facility] Work Phone: Start: 01-07-2023 End: 01-07-[address] Quinten Priest Work Phone: [facility] Work Phone: Start: 12-30-2022 End: 12-30-[address] Quinten Priest Work Phone: [facility] Work Phone: Start: 01-21-2022 End: 01-21-2022 ambulatory [facility] Work Phone: Start: 01-21-2022 End: 01-21-2022 [facility] Start: 12-31-2021 End: 12-31-2021 ambulatory [facility] Work Phone: Start: 12-31-2021 End: 12-31-2021 Patient encounter procedure [facility] Payers Date Payer Category Payer Private Health Insurance [id number] 2024 Self-pay [id number] Unknown [facility] [id number] Unknown [id number] Unknown [id number] Social History Date Type Detail Facility [facility] smoked [facility] Work Phone: Start: 1960 Sex Assigned At Male [facility] Start: 12-30-2022 Tobacco smoking stat [facility] Unknown if ever smoked [facility] Start: 12-30-2022 Tobacco smoking stat [facility] Never smoked tobacco (finding) [facility] Evaluation note Note Date & Type Note Facility Evaluation note No assessment information availa ble [facility] Work Phone: Evaluation note Note Date & Type Note Facility Evaluation note Diagnosis Onset Date Irritant contact dermatitis due to plant acute [facility] Work Phone: Reason for referral (narrative) Note Date & Type Note Facility Reason for referral (narrative) No reason for referral information available [facility] Work Phone: Chief Complaint and Reason for Visit Chief Complaint POISON MITZI EORDER Reason for Visit Irritant contact chandler matitis due to plant Family History No Family History Records Found Relationship Condition Age at Onset Recorded Date/T karol father Malignant neoplasm of colon Unknown Malignant neoplasm Unknown Summary Purpose Advance Directives No Advanced Directives Records Found Additional Source Comments Goals (unrecognized section and content) Goals may be documented in a n alternate sectionGoals may be documented in an alternate sectionGoals may be documented in an alternate section Care Teams (unrecognized sec tion and content) Team Status: Active Member Role Status Dates Dr. Quinten Priest MD Family Provider Active Dr. Quinten Priest MD Primary Care Provider Active Team Status: Inactive Member Role Status Dates Dr. Quinten Priest MD Primary Care Provider, Referring Lo bradley Active Sherman LOPEZ, PA Attending Provider Active Team Status: Inactive Member Role Status Dates Dr. Quinten Priest MD Primary Care Provide r, Attending Provider, Referring Provider Active Team Status: Inactive Member Role Status Dates Dr. Quinten Priest MD Primary Care Provider, Attending Lo bradley Active Team Status: Inactive Member Role Status Dates Dr. Quinten Priest MD Primary Care Provider Active Start: September 20, 2024 End: September 20, 2024 Dr. Quinten Priest MD Attending Provider Active St art: September 20, 2024 End: September 20, 2024 Dr. Quinten Priest MD Referring Provider Active St art: September 20, 2024 End: September 20, 2024 (unrecognized sect ion and content) No Status Records Found INFORMATION SOURCE (unrecogn ized section and content) DATE CREATED AUTHOR 09/27/2024 [facility] FOR RECORDS PERTAINING TO PATIENTS WHO ARE OR HAVE BEEN ENROLLED IN A CHEMICAL DEPENDENCY/SUBSTANCEABUSE PROGRAM, SOME INFORMATION MAY BE OMITTED. This clinical summary was aggregated from multiple sources. Caution should be exercised in using it in the provision of clinical care. This summary normalizes information from multiple sources, and as a consequence, information in this document may materially change the coding, format and clinical context of patient data. In addition, data may be omitted in some cases. CLINICAL DECISIONS SHOULD BE BASED ON THE PRIMARY CLINICAL RECORDS. [employer] provides no warranty or guarantee of the accuracy or completeness of information in this document.
[2025-03-08 10:55] LABS: AST(SGOT) 25 U/L (<=37); Alanine Aminotransfer ALT/SGPT 21 U/L (<=46); Albumin, Serum 4.4 g/dL (3.4-4.8); Alkaline Phosphatase 97 U/L (40-129); Anion Gap 10 (5-15); BUN 16 mg/dL (4-19); BUN/Creat Ratio 13.4 RATIO (10-20); Calcium,Total 9.6 mg/dL (7.6-11.0); Carbon Dioxide 27.5 mmol/L (21.0-32.0); Chloride 101 mmol/L (98-108); Cholesterol 196 mg/dL (<=200); Ferritin 232 ng/mL (37-417); Globulin 3.2 g/dL (2.2-4.2); Glucose 83 mg/dL (70-99); Low Density Lipoprotein Calc. 118 mg/dL; Potassium 3.8 mmol/L (3.3-5.1); Triglycerides 76 mg/dL; Very Low Density Lipoprotein 15 mg/dL (5-40); Vitamin B12 503 pg/mL (180-914); cholesterol:hdl ratio screen 3.03
[2025-03-11 13:08] LABS: Vitamin D 1,25-Dihydroxy 26.5 pg/mL (24.8-81.5)
== END | disposition home or self-care (01) ==
PROVIDERS: PCP Family Medicine; Referring Provider Family Medicine; Visit Provider Family Medicine
DX: I12.9 Hypertensive chronic kidney disease with stage 1 through stage 4 chronic kidney disease, or unspecified chronic kidney disease (principal); D64.9 Anemia, unspecified; N18.2 Chronic kidney disease, stage 2 (mild)
CPT/HCPCS: 36415; 80053; 80061; 82607; 82652; 82728